=== PATIENT | male | born 1945 | race Caucasian/White ===

== ENCOUNTER 2024-01-20 07:36 | Day surgery (SDC) | payer OTHER ==
[~2024-01-20] VITALS: Ht 144.8 cm; Wt 73.5 kg
[2024-01-20] MEDS ORDERED: fentaNYL citrate 0.05 MG/ML VIAL ONE (09:11)
[2024-01-20] MEDS: fentaNYL citrate 0.05 MG/ML VIAL IVP ONE (09:50)
== END 2024-01-20 11:10 | disposition home or self-care (01) ==
LOC: MDS 07:36 → MMU 07:37 → MDS 11:10
PROVIDERS: ATTEND Internal Medicine Gastroenterology
DX: Z12.11 Encounter for screening for malignant neoplasm of colon (principal); K62.1 Rectal polyp; I10 Essential (primary) hypertension; E11.9 Type 2 diabetes mellitus without complications; Q43.8 Other specified congenital malformations of intestine; E78.5 Hyperlipidemia, unspecified; Z79.01 Long term (current) use of anticoagulants; Z79.899 Other long term (current) drug therapy
CPT/HCPCS: 45385; 82948; J3010